=== PATIENT | female | born 1990 ===

== ENCOUNTER 2016-05-06 20:55 | Emergency (ER) | payer MEDICAID ==
[2016-05-06 20:56] VITALS: BMI 25.4
[2016-05-06 21:04] VITALS: BP 106/63; PULSE 86; RESP 16; TEMP 98.6; O2SAT 99
[2016-05-06 22:45] LABS: BASO % 0.3 % (0.0-2.0); EOS # 0.1 K/uL (0.0-0.7); EOS % 0.7 % (0.0-4.0); HEMATOCRIT 36.6 % (34.0-47.0); LYMPH # 1.8 K/uL (1.0-4.3); LYMPH % 22.8 % (20.0-40.0); MEAN CELL VOLUME 88.3 fl (81.0-99.0); MEAN CORPUSCULAR HEMOGLOBIN 29.6 pg (27.0-31.0); MEAN CORPUSCULAR HGB CONC 33.5 g/dL (33.0-37.0); MEAN PLATELET VOLUME 9.7 fl (7.2-11.7); MONO # 0.6 K/uL (0.0-0.8); MONO % 7.7 % (0.0-10.0); NEUT # 5.4 K/uL (1.8-7.0); NEUT % 68.5 % (50.0-75.0); NRBC % 0.1 % (0.0-0.0); RED CELL DISTRIBUTION WIDTH 14.7 % (11.5-14.5); WHITE BLOOD COUNT 7.8 K/uL (4.8-10.8)
--- NOTE | 2016-05-06 22:54 | ED PDOC ---
HPI: Abdomen Time Seen by Provider: 05/06/16 21:17 Chief Complaint (Nursing): Abdominal Pain Chief Complaint (Provider): Abdominal Pain History Per: Patient History/Exam Limitations: no limitations Onset/Duration Of Symptoms: Days (x1) Current Symptoms Are (Timing): Still Present Associated Symptoms: denies: Fever, Nausea, Vomiting, Chest Pain, Urinary Symptoms Additional Complaint(s): 21:17 Kate Pollack is 26 year old, 15-week female that presents to the ED with a chief complaint of lower abdominal that radiates to her back that she has been experiencing for since this morning. Patient denies any vaginal discharge, vaginal bleeding, nausea, vomiting, diarrhea, fever, cough, chest pain, or urinary symptoms. : 8 Para: 4 Miscarriage:1 Abnormal Vaginal Bleeding: No : 8 Para: 4 Miscarriage: 1 Past Medical History Reviewed: Historical Data, Nursing Documentation, Vital Signs Vital Signs: Last Vital Signs Temp 98.6 F 05/06/16 21:00 Pulse 86 05/06/16 21:00 Resp 16 05/06/16 21:00 BP 106/63 05/06/16 21:00 Pulse Ox 99 05/07/16 01:44 - Medical History PMH: Anxiety, Asthma Denies: Chronic Kidney Disease - Surgical History Other surgeries: ectopic - Family History Family History: States: Unknown Family Hx - Immunization History Hx Tetanus Toxoid Vaccination: No Hx Influenza Vaccination: Yes Hx Pneumococcal Vaccination: No - Home Medications Home Medications: Ambulatory Orders Medication Instructions Recorded Vitamins8 [Classic 1 tab PO DAILY 01/20/15 ] Albuterol 0.083% [Albuterol 0.083% 3 ml INH PRN PRN 04/17/16 Inhal Olivia (2.5 mg/3 ml) UD] - Allergies Allergies/Adverse Reactions: Allergies Allergy/AdvReac Type Severity Reaction Status Date / Time FISH Allergy RASH Verified 04/17/16 13:57 pollen extracts Allergy COUGH Verified 04/17/16 14:24 Review of Systems Constitutional: Negative for: Fever Cardiovascular: Negative for: Chest Pain Respiratory: Negative for: Cough Gastrointestinal: Positive for: Abdominal Pain. Negative for: Nausea, Vomiting , Diarrhea Genitourinary Female: Negative for: Dysuria, Frequency, Hematuria, Vaginal Discharge, Vaginal Bleeding Physical Exam - Reviewed Nursing Documentation Reviewed: Yes Vital Signs Reviewed: Yes - Physical Exam Appears: Positive for: Non-toxic, No Acute Distress Head Exam: Positive for: ATRAUMATIC, NORMOCEPHALIC Skin: Positive for: Warm, Dry Cardiovascular/Chest: Positive for: Regular Rate, Rhythm. Negative for: Murmur Respiratory: Positive for: Normal Breath Sounds. Negative for: Wheezing Gastrointestinal/Abdominal: Positive for: Soft. Negative for: Tenderness Back: Positive for: L CVA Tenderness (mild) Neurologic/Psych: Positive for: Alert, Oriented - Laboratory Results Result Diagrams: 05/06/16 22:28 - ECG O2 Sat by Pulse Oximetry: 99 (RA) Pulse Ox Interpretation: Normal Medical Decision Making Medical Decision Makin:55 Initial Impression: 26 year old female with Abdominal Pain and Back Pain in setting of Initial Plan: * CBC * Beta-HCG * Urine * Urine dip * Urinalysis * US Transvaginal * Reevaluation 01:21 US TRANSVAGINAL FINDINGS: Fetus: Single live intrauterine gestation. Heart rate: heart rate of 150 beats per minute. Presentation: Transverse. Placenta: Anterior placenta. No placenta previa or abruption. Amniotic fluid: Normal. Anatomy: No gross anomaly is appreciated. BIOMETRICS Gestational age by US: Estimated gestational age of 15 weeks 2 days by measurements. EFW: Estimated weight of 122 g. BPD: 3.0 cm, correlating with 15 weeks 4 days. HC: 10.5 cm, correlating with 15 weeks 0 days. AC: 9.2 cm, correlating with 15 weeks 2 days. FL: 1.8 cm, correlating with 15 weeks 3 days. MATERNAL: Uterus: Unremarkable. No myometrial mass. Cervix: No cervical dilatation or effacement. Free fluid: No free fluid. IMPRESSION: 1. Single live intrauterine gestation. 2. Incidental/non-acute findings are described above. 01:41 Pt was re-evaluated. Labs were reviewed with no clinically significant abnormalities. Explained results with pt at length, who remained asymptomatic throughout her stay in the ED. Pt notes she has a pre-existing appointment with her own OB at [facility] on 05/09/2016. Pt will be discharged routinely. Condition is stable for discharge. Clinical impression- Abdominal pain and Scribe Attestation: Documented by Elisha Ospina, acting as a scribe for Carlos Bustos MD. Provider Scribe Attestation: All medical record entries made by the Scribe were at my direction and personally dictated by me. I have reviewed the chart and agree that the record accurately reflects my personal performance of the history, physical exam, medical decision making, and the department course for this patient. I have also personally directed, reviewed, and agree with the discharge instructions and disposition. Disposition - Clinical Impression Clinical Impression: Abdominal pain during - Disposition Disposition: Routine/Home Disposition Time: 01:41 Condition: STABLE Instructions: Abdominal Pain in (ED)
[2016-05-06 23:01] LABS: RBC URINE 2 /hpf (0-3); URINE BACTERIA RARE (<OCC); URINE BILIRUBIN NEGATIVE (NEGATIVE); URINE BLOOD MODERATE (NEGATIVE); URINE COLOR YELLOW (YELLOW); URINE GLUCOSE (UA) NEG (Normal); URINE KETONE NEGATIVE (NEGATIVE); URINE LEUKOCYTE ESTERASE TRACE Leu/uL (Negative); URINE PROTEIN NEGATIVE (NEGATIVE); URINE UROBILINOGEN 0.2-1.0 mg/dL (0.2-1.0); WBC URINE 3 /hpf (0-5)
--- NOTE | 2016-05-07 01:20 | US ---
EXAM: US After First Trimester, Transabdominal. CLINICAL HISTORY: 26 years old, female; Pain; Other: Pelvic pressure/craps; Gestational age or lmp: 01/29/16; ; Additional info: Preg vag bld TECHNIQUE: Real-time transabdominal obstetrical ultrasound of the maternal pelvis and a second or third trimester with image documentation. COMPARISON: No relevant prior studies available. FINDINGS: Fetus: Single live intrauterine gestation. Heart rate: heart rate of 150 beats per minute. Presentation: Transverse. Placenta: Anterior placenta. No placenta previa or abruption. Amniotic fluid: Normal. Anatomy: No gross anomaly is appreciated. BIOMETRICS Gestational age by US: Estimated gestational age of 15 weeks 2 days by measurements. EFW: Estimated weight of 122 g. BPD: 3.0 cm, correlating with 15 weeks 4 days. HC: 10.5 cm, correlating with 15 weeks 0 days. AC: 9.2 cm, correlating with 15 weeks 2 days. FL: 1.8 cm, correlating with 15 weeks 3 days. MATERNAL: Uterus: Unremarkable. No myometrial mass. Cervix: No cervical dilatation or effacement. Free fluid: No free fluid. IMPRESSION: 1. Single live intrauterine gestation. 2. Incidental/non-acute findings are described above.
== END 2016-05-07 02:00 | disposition home or self-care (01) ==
LOC: H.ER 20:55
DX: O26.892 Other specified pregnancy related conditions, second trimester (principal)